=== PATIENT | male | born 1965 ===

== ENCOUNTER 2023-01-25 08:12 | Inpatient (IN) | payer OTHER ==
[~2023-01-25] VITALS: Ht 175.3 cm; Wt 72.6 kg
[2023-01-25 09:17] LABS: HEMATOCRIT 44.6 % (39.0-48.0); HEMOGLOBIN 15.1 g/dL (13-16.00); MEAN CELL VOLUME 88.3 fL (80.0-100.00); MEAN CORPUSCULAR HEMOGLOBIN 29.9 pg (27.00-32.0); MEAN CORPUSCULAR HGB CONC 33.9 g/dl (32.0-36.0); PLATELET COUNT 200 K/uL (150-450); RED BLOOD COUNT 5.05 M/uL (4.00-6.00); RED CELL DISTRIBUTION WIDTH 12.7 % (11.5-14.5)
[2023-01-25] MEDS ORDERED: GLUMETZA1000 MG PO (09:17)
[2023-01-25] MEDS ORDERED: TAMS0.4C PO (09:17)
[2023-01-25] MEDS ORDERED: AMANTADINE PO (09:18)
[2023-01-25] MEDS ORDERED: ATORVASTATIN CA40 MG PO (09:18)
[2023-01-25] MEDS ORDERED: BENZTROPINE MESY2 MG PO (09:19)
[2023-01-25] MEDS ORDERED: PROLIXIN10 MG PO (09:19)
[2023-01-25] MEDS ORDERED: ATIVAN1 M1 PO (09:19)
[2023-01-25 09:35] LABS: PH,URINE 5.5 (5.0-8.0); URINE APPEARANCE Clear; URINE BILIRRUBIN Negative (NEGATIVE); URINE BLOOD Negative; URINE COLOR Yellow; URINE GLUCOSE Negative (NEGATIVE); URINE LEUKOCYTE Trace; URINE NITRATE Negative; URINE PROTEIN Negative (NEGATIVE); URINE UROBILINOGEN 0.2 E.U./dl
[2023-01-25 09:37] LABS: URINE WBC 12.8 uL (0.0-23.2)
[2023-01-25 09:38] LABS: INR 1.06; PARTIAL THROMBOPLASTIN TIME 29.1 SECONDS (22.0-34.0); PROTHROMBIN TIME 11.1 SECONDS (9.0-11.5)
[2023-01-25 10:05] LABS: URINE BACTERIA > 9821.5 uL (0.0-1933); URINE EPITHELIAL CELLS 0.7 uL (0.0-38.8); URINE RBC 0.7 uL (0.0-20.8)
[2023-01-25 10:07] LABS: CALCIUM 10.2 mg/dL (8.5-10.1); CREATININE SERUM 0.85 mg/dL (0.70-1.30); GFR 92.9; POTASSIUM 4.62 mEq/L (3.5-5.1)
[2023-01-30] MEDS ORDERED: AMANTADINE100 MG (08:13)
[2023-01-31 06:37] LABS: HEMATOCRIT 39.6 % (39.0-48.0); HEMOGLOBIN 13.3 g/dL (13-16.00); MEAN CELL VOLUME 90.2 fL (80.0-100.00); MEAN CORPUSCULAR HEMOGLOBIN 30.4 pg (27.00-32.0); MEAN CORPUSCULAR HGB CONC 33.7 g/dl (32.0-36.0); PLATELET COUNT 165 K/uL (150-450); RED BLOOD COUNT 4.38 M/uL (4.00-6.00); RED CELL DISTRIBUTION WIDTH 12.3 % (11.5-14.5)
[2023-01-31 07:15] LABS: ALBUMIN 3.1 gm/dL (3.4-5.0); CALCIUM 8.3 mg/dL (8.5-10.1); CREATININE SERUM 0.9 mg/dL (0.70-1.30); GFR 86.98; PHOSPHOROUS 3.1 mg/dL (2.5-4.9); POTASSIUM 3.7 mEq/L (3.5-5.1)
== END 2023-01-31 10:52 | disposition home or self-care (01) | DRG 708 ==
LOC: O/R 01-30 05:31 → SURH 01-30 05:31 → SURG 01-30 07:00 → SURH 01-30 18:09
PROVIDERS: ADMIT Urology; ATTEND Urology
PROC: 07BC4ZZ Excision of Pelvis Lymphatic, Percutaneous Endoscopic Approach (ICD-10-PCS; 2023-01-30)
PROC: 8E0W4CZ Robotic Assisted Procedure of Trunk Region, Percutaneous Endoscopic Approach (ICD-10-PCS; 2023-01-30)
PROC: 0VT04ZZ Resection of Prostate, Percutaneous Endoscopic Approach (ICD-10-PCS; principal; 2023-01-30 07:00)
DX: C61 Malignant neoplasm of prostate (principal); Z20.822 Contact with and (suspected) exposure to COVID-19
CPT/HCPCS: 55866; 38571; S2900